=== PATIENT | female | born 1995 | race Caucasian/White ===

== ENCOUNTER 2021-12-09 15:00 | Emergency (ER) | payer MEDICAID ==
[~2021-12-09] VITALS: Ht 160 cm; Wt 118.6 kg
[2021-12-09 15:05] VITALS: BP 167/76
--- NOTE | 2021-12-09 15:10 | NUR ---
PT AMBULATED TO BED 5
--- NOTE | 2021-12-09 15:15 | NUR ---
26YO FEMALE PT C/O LOWER BACK AND RIGHT ABDOMINAL PAIN. PT STATES SUDDEN TIGHT ONSET THIS EARLY THIS MORNING. PT STATES SOB AND "SHAKING" WHEN MOST IN PAIN. PT DENIES TAKING MEDICATION TO RELIEF PAIN. PT DENIES CHEST PAIN , N/V/D OR FEVER. PT CURRENT PAIN 01/19. BACK AND ABDOMEN NON TENDER. ABDOMEN SOFT AND NON DISTENDED. PT STATES HAS HX GALLSTONES 2-3 YEARS AGO THAT WENT UNTREATED. PT STATES SIMILAR SYMPTOMS.PT AAOX4, ALL NEEDS MET THIS TIME. NKA HX GALLSTONES
[2021-12-09 16:03] LABS: BASOPHILS % (AUTO) 0.3 % (0.0-2.0); EOSINOPHILS # (AUTO) 0.1 K/uL (0-0.4); EOSINOPHILS % (AUTO) 1.1 % (0.0-4.0); HEMATOCRIT 40.6 % (36-48); HEMOGLOBIN 13.2 g/dL (12.0-16.0); LYMPHOCYTES # (AUTO) 3.7 K/uL (2.5-16.5); LYMPHOCYTES % (AUTO) 33.1 % (20.5-51.1); MEAN CORPUSCULAR HEMOGLOBIN 25 pg (27-31); MEAN CORPUSCULAR HGB CONC 33 g/dL (33-37); MEAN CORPUSCULAR VOLUME 77.3 fL (80-94); MONOCYTES # (AUTO) 0.6 K/uL (0.8-1.0); MONOCYTES % (AUTO) 5.4 % (1.7-9.3); NEUTROPHILS # (AUTO) 6.7 K/uL (1.8-7.7); NEUTROPHILS % (AUTO) 60.1 % (42.2-75.2); PLATELET COUNT (AUTO) 270 K/uL (140-450); RED BLOOD CELL COUNT(AUTO) 5.25 MIL/uL (4.20-5.40); RED CELL DISTRIBUTION WIDTH 15.7 % (11.6-13.7); WHITE BLOOD COUNT (AUTO) 11.2 K/uL (4.8-10.8)
[2021-12-09] MEDS ORDERED: HYDROcodone/APAP 7.5/325 MG 1 TAB PO ONE (16:25)
[2021-12-09 16:36] LABS: ALBUMIN 3.4 g/dL (3.4-5.0); ANION GAP 11.1 (8-16); CARBON DIOXIDE 28.1 mmol/L (21-32); CREATININE 0.7 mg/dL (0.6-1.3); POTASSIUM 4.2 mmol/L (3.5-5.1); TOTAL BILIRUBIN 0.2 mg/dL (0.0-1.0)
[2021-12-09] MEDS ORDERED: FAMOTIDINE 20 MG TAB PO ONE (16:55)
[2021-12-09 16:58] LABS: APPEARANCE,URINE CLEAR (CLEAR); BILIRUBIN,URINE NEGATIVE (NEGATIVE); BLOOD, URINE TRACE-I (NEGATIVE); COLOR,URINE YELLOW (YELLOW); LEUKOCYTE ESTERASE ,URINE NEGATIVE (NEGATIVE); NITRITE, URINE NEGATIVE (NEGATIVE); UGLUCOSE NEGATIVE (NEGATIVE)
[2021-12-09 17:05] LABS: RBC,URINE 0-5 /HPF (0-5); WBC,URINE NONE SEEN /HPF (0-5)
[2021-12-09] MEDS ORDERED: KETOROLAC 30 MG/ML VIAL IM ONE (17:10)
--- NOTE | 2021-12-09 17:25 | NUR ---
PT TAKEN TO CT VIA WHEELCHAIR
--- NOTE | 2021-12-09 17:40 | NUR ---
PT RETURNED FROM CT VIA WHEELCHAIR
--- NOTE | 2021-12-09 19:29 | NUR ---
REPORT GIVEN TO RADHA MCNEAL . TRANSFER OF CARE
--- NOTE | 2021-12-09 20:19 | NUR ---
2000- US AT BEDSIDE 2019- US DONE
--- NOTE | 2021-12-09 21:37 | NUR ---
Patient appears to be resting comfortably in bed. Vital Signs within normal limits. Respirations even and unlabored.
--- NOTE | 2021-12-10 | NUR ---
Patient appears to be resting comfortably in bed. Vital Signs within normal limits. Respirations even and unlabored.
--- NOTE | 2021-12-10 03:26 | NUR ---
PT SLEEPING QUIETLY IN BED
[2021-12-10 06:23] VITALS: BP 105/48
--- NOTE | 2021-12-10 06:23 | NUR ---
DR. NEIL DISCHARGED.
--- NOTE | 2021-12-10 06:36 | NUR ---
The patient's care was reviewed and supervised by Luz Maria Read RN.
== END 2021-12-10 06:23 | disposition home or self-care (01) ==
LOC: MED 15:00
DX: R10.11 Right upper quadrant pain (principal); K80.50 Calculus of bile duct without cholangitis or cholecystitis without obstruction; Z20.822 Contact with and (suspected) exposure to COVID-19; Z98.890 Other specified postprocedural states
CPT/HCPCS: 36415; 74176; 76856; 80053; 81001; 81025; 83690; 85025; 87426; 87635; 93976; 96372; 99285; C9803; J1885; Q0092